=== PATIENT | male | born 1995 | race Caucasian/White ===

== ENCOUNTER 2019-01-28 10:13 | Emergency (ER) | payer SELFPAY ==
[2019-01-28 10:14] VITALS: BP 131/68; PULSE 104; RESP 18; TEMP 36.8; O2SAT 96; BMI 25.1
--- NOTE | 2019-01-28 10:56 | ED.VIS.GEN ---
History of Present Illness Chief Complaint: Flank Pain Onset: Today Context: Gradual Onset Narrative: Patient is a 23-year-old male with no significant past medical history presenting with low back pain as well as vomiting diarrhea. Patient states around 2 AM he started having vomiting and diarrhea. He denies any blood in his vomit or stool. He has crampy abdominal pain right before these episodes. He is throwing up every 30 minutes or so since then. About 2 hours after GI symptoms started he developed low back pain. He states it is diffuse. Patient denies any urinary symptoms. He denies any fever chills. Denies any chest pain or difficulty breathing. He denies any rash. He denies taking any dopw-oyf-cooyogv medications for his symptoms prior to arrival. He does comment that he has had wart on his testicle for the past year and is worried about that. He states he did not see about it. He does not currently have a primary care doctor. Patient denies any penile discharge. He is not concerned for sexually transmitted infections. Past Medical History - Allergies and Home Meds Allergies/Adverse Reactions: Allergies No Known Allergies Allergy (Verified 01/28/19 10:16) Primary Care Physician: Tomy Pavon MD [STAFF PHYSICIAN] - Past Medical History: None Surgical History: no surgical history Lives: Spouse/ Significant Other Review of Systems General: Reports: Sweats. Denies: Chills, Fever Eyes: Denies: Visual changes - bilaterally, Diplopia ENT: Denies: Rhinorrhea, Sore throat Cardiovascular: Denies: Chest pain, Palpitations Respiratory: Denies: Dyspnea, Cough, Dyspnea on exertion Gastrointestinal: Reports: Abdominal pain, Nausea, Vomiting, Diarrhea. Denies: Melena, Hematochezia Genitourinary: Denies: Dysuria, Hematuria, Frequency Musculoskeletal: Reports: Back pain. Denies: Extremity Pain Skin: Denies: Rash, Wounds Neurological: Denies: Headache, Weakness, Numbness Physical Exam Vital Signs/Narrative: Vital Signs Temp Pulse Resp BP Pulse Ox 01/28/19 10:14 98.2 F 104 H 18 131/68 H 96 Inital Vital Signs reviewed: Yes General: Well nourished, Well developed, No Acute Distress Head: Normocephalic, Atraumatic Eyes: Perrl, EOMI ENT: Moist mucous membranes, No rhinorrhea Neck: Supple, Nontender Cardiovascular: Regular rate, Regular rhythm, No murmurs Respiratory: No distress, CTA bilaterally, Chest nontender Abdomen: Soft, Nontender, Nondistended, Normal bowel sounds. Negative for: Guarding, Rebound tenderness Back: Normal Inspection, - - Mild bilateral lumbar paraspinal tenderness to palpation. Negative for: CVA tenderness, Spinal tenderness Extremities: Nontender, No edema Skin: Normal color, No rash, - - On the left testicle there is a raised, smooth, flesh-colored nodule that is approximately 5 mm in diameter, it is nontender to the touch Neurological: Alert, Oriented x3, Cranial nerves II-XII grossly intact, Normal Strength, Normal Sensation Psychological: Normal affect, Normal Mood Diagnostic/Tx/Re-eval Laboratory Data 01/28/19 11:50 Urine Color Yellow Urine Clarity Sl. Cloudy Urine pH 7.0 Ur Specific [place] 1.010 Urine Protein 30 H Urine Glucose (UA) Normal Urine Ketones 5 H Urine Occult Blood Negative Urine Nitrite Negative Urine Bilirubin Negative Urine Urobilinogen 1 H Ur Leukocyte Esterase 25 H Urine RBC 0 SEEN Urine WBC 0-5 SEEN Ur Squamous Epith Cells 0 SEEN Urine Bacteria 1+ Urine Mucus 2+ - Medical Decision Making Patient is evaluated for less than 1 day of vomiting and diarrhea. After that he also developed low back pain. Patient appears nontoxic and in no acute distress. He is mildly tachycardic on triage but well-appearing. He does not have any CVA tenderness and his back pain appears to be musculoskeletal. It is his lower paraspinal lumbar region. His abdomen is soft and nontender. Discussed treating symptomatically as likely this is viral/musculoskeletal versus doing lab work/IV/fluids. Patient elects to be treated symptomatically and defer blood work at this time. Urinalysis is checked which does show 5+ ketones but no blood. I do not suspect a kidney stone. Patient has improvement of symptoms with Zofran. He is given Motrin for his back pain. He tolerates p.o. challenge in the emergency room. Patient was concerned about a bump on his testicle that is been present for the past year. I told him that it does not look infectious at this time and you should follow-up with a primary care doctor. He is referred to her primary care doctor as he does not currently have one. Patient is counseled on signs and symptoms requiring return to the emergency room. Patient verbalizes agreement and understand this plan. Patient discharged home in stable and improved condition. ED Disposition - Plan for ED Patient: Disposition: Home or Assisted Living Diagnosis: Low back pain, Vomiting and diarrhea Instructions: BACK PAIN (Acute or Chronic), VOMITING AND DIARRHEA, Nonspecific (Adult) Prescriptions: Ibuprofen [Motrin] 600 mg PO Q6H PRN PRN #20 tab PRN Reason: Pain/Inflammation Prescription Printed Ondansetron [Zofran Odt] 4 mg PO Q8H PRN PRN #10 tab PRN Reason: Nausea Prescription Printed Referrals: Tomy Pavon MD [STAFF PHYSICIAN] - Additional Instructions: Use a heating pad for lower back. I suspect your pain is just from the muscles being sore. I suspect you have a GI bug that is causing your vomiting and diarrhea. Take Zofran as needed for nausea. You may also use Pepto-Bismol for your symptoms. You were that this might cause you to turn black. Currently plenty of fluids over the next few days and rest. Return to emergency room for worsening symptoms.
[2019-01-28] MEDS: Ondansetron ODT 4 MG Tablet PO (11:21)
[2019-01-28] MEDS: Ibuprofen 600 MG Tablet PO (11:21)
[2019-01-28 11:55] LABS: Red Blood Cells-Urine 0 SEEN /hpf (0-5); Squamous Epithelial Cells - UA 0 SEEN /hpf (0-5)
[2019-01-28 12:11] LABS: Color, Urine Yellow (Yellow); Glucose, Dipstick Normal (Normal); Ketone-Dipstick 5 mg/dl (Negative); Leukocyte Esterase-Dipstick 25 /ul (Negative); Nitrite-Dipstick Negative (Negative); Occult Blood-Urine Negative /ul (Negative); Protein-Dipstick 30 mg/dl (Negative); Urine Bilirubin Dipstick Negative (Negative); Urine Clarity Sl. Cloudy (Clear); Urine Urobilinogen 1 mg/dl (Normal)
[2019-01-28 12:39] LABS: Bacteria 1+ /hpf (None Seen); Mucous, Urine 2+ /hpf (<or=2+); White Blood Cells 0-5 SEEN /hpf (0-5)
[2019-01-28 12:51] VITALS: BP 121/68; PULSE 102; RESP 16; O2SAT 95
== END 2019-01-28 12:52 | disposition home or self-care (01) ==
PROVIDERS: Emergency Provider Emergency Medicine
DX: M54.5 Low back pain (principal); R11.10 Vomiting, unspecified; R19.7 Diarrhea, unspecified
CPT/HCPCS: 81001; 99283

== ENCOUNTER → 2019-02-25 10:39 | Outpatient (CLI) | payer SELFPAY ==
[2019-01-28 10:14] VITALS: BMI 25.1
--- NOTE | 2019-02-25 11:01 | EKG12_ITS ---
Test Reason : PREOP Blood Pressure : / mmHG Vent. Rate : 068 BPM Atrial Rate : 068 BPM P-R Int : 178 ms QRS Dur : 094 ms QT Int : 364 ms P-R-T Axes : 053 037 022 degrees QTc Int : 387 ms Normal sinus rhythm Normal ECG Confirmed by VIDA FREEDMAN, MARTÍN ([id number]), publication editor NATHANAEL YE ([id number]) on 02/28/2019 10:30:10 AM Referred By: Grey aMckey Confirmed By:MARTÍN MCPHERSON MD
--- NOTE | 2019-02-25 11:02 | RAD_ITS ---
STUDY: X-RAY CHEST REASON FOR EXAM: Male, 23 years old. PRE OP, NO CHEST COMPLAINTS TECHNIQUE: PA and lateral views of the chest. COMPARISON: None. FINDINGS: The lungs are clear and expanded. There is no demonstrated pleural abnormality. Normal size heart. Normal mediastinum and eve. Normal visualized pulmonary arteries. Normal visualized aortic arch and descending thoracic aorta. Normal visualized thoracic spine. Normal visualized ribs, clavicles, and shoulders. There is no demonstrated abnormality of the visualized soft tissue structures of the upper abdomen. RAD/Chest PA and Lateral IMPRESSION: Normal x-ray examination of the chest. Electronically Signed: Sylvester Servin MD at 9:09 EST , Service support ,
[2019-02-25 11:38] LABS: Absolute Lymphocyte Count 3.85 X10^3/uL (0.83-4.51); Basophil# 0.06 X10^3/uL; Basophil% 0.6 % (0-1); Eosinophil# 0.62 X10^3/uL; Eosinophils% 6.7 % (0-5); Hematocrit 43.9 % (40-54); Hemoglobin 14.5 g/dL (13.0-16.5); Lymphocyte # 3.85 X10^3/ul (4.0); Lymphocyte % 41.4 % (19-41); Mean Corpuscular Hgb 28.7 pg (27.0-32.0); Mean Corpuscular Volume 86.8 fL (80-94); Mean Platelet Vol. 9.8 fl (6.2-12.0); Monocyte% 7.5 % (0-10); NRBC Flagged by Analyzer 0 % (0-5); Neutrophil % 43.2 % (47-70); Platelet Count 301 K/mm3 (150-450); RBC Distribution Width CV 12.3 % (11.6-14.6); RBC Distribution Width SD 39.1 fl (35.1-43.9); Red Blood Count 5.06 M/mm3 (4.6-6.2); White Blood Count 9.3 K/mm3 (4.4-11.0)
[2019-02-25 11:43] LABS: Prothrombin Time (Protime)PT. 12.9 SECONDS (11.7-14.9)
[2019-02-25 11:44] LABS: Partial Thromboplast Time 28.6 Seconds (24.1-36.2)
[2019-02-25 11:53] LABS: Anion Gap 3 (5-15); BUN 11 mg/dL (7-18); BUN/Creat Ratio 10.4 RATIO (10-20); Calcium,Total 9.4 mg/dL (8.5-10.1); Chloride 105 mmol/L (98-107); Creatinine, Serum 1.06 mg/dL (0.70-1.30); EST Glomerular Filtration Rate 93 mL/min (>60); Est Glom Filt Rate - Afr Amer 113 mL/min (>60); Glucose 80 mg/dL (74-106); Potassium 4.1 mmol/L (3.5-5.1); Sodium Level 138 mmol/L (136-145)
== END ==
LOC: LAB 10:43
PROVIDERS: Family Provider Family Medicine; PCP Family Medicine; Referring Provider Podiatrist Foot & Ankle Surgery; Visit Provider Podiatrist Foot & Ankle Surgery
DX: Z01.818 Encounter for other preprocedural examination (principal); Z01.811 Encounter for preprocedural respiratory examination
CPT/HCPCS: 36415; 71046; 80048; 85025; 85610; 85730; 93005